=== PATIENT | female | born 1950 | race Caucasian/White ===

== ENCOUNTER 2020-05-22 08:41 | Day surgery (SDC) | payer MEDICARE, BC ==
[~2020-05-22] VITALS: Ht 152.4 cm; Wt 69.4 kg
[2020-05-22 09:17] VITALS: BP 162/73; PULSE 63; TEMP 98.4
[2020-05-22] MEDS ORDERED: MAXZIDE-25MG TA1 TAB PO (09:23)
[2020-05-22] MEDS ORDERED: ZOCOR 20MG20 MG PO (09:24)
[2020-05-22] MEDS ORDERED: LOPRESSOR 550 MG/TAB PO (09:24)
[2020-05-22] MEDS ORDERED: CALCIUM 600MG+D1 TAB PO (09:25)
[2020-05-22] MEDS ORDERED: ASPIRIN 81M81 MG/TA2 PO (09:26)
[2020-05-22] MEDS ORDERED: MULTIVITAMIN SEN PO (09:26)
[2020-05-22] MEDS ORDERED: PRILOTC PO (09:27)
[2020-05-22] MEDS ORDERED: VASOTEC20 MG PO (09:27)
[2020-05-22] MEDS ORDERED: ZYRTEC 10MG10 MG PO (09:28)
[2020-05-22] MEDS ORDERED: BENADRYL25 M2 PO (09:29)
[2020-05-22] MEDS ORDERED: ALEVE 220MG220 MG PO (09:29)
[2020-05-22 10:25] VITALS: BP 134/62; PULSE 69; TEMP 97.2
--- NOTE | 2020-05-22 10:25 | NUR ---
Pt to [facility] via cart from ENDO. Pt drowsy, but awakens easily. Pt ambulates to recliner with stand by assistance x2. Pt denies pain or nausea. Water given per pt request. Call light within reach. Will continue to monitor. Call light within reach.
[2020-05-22 10:40] VITALS: BP 119/60; PULSE 66
--- NOTE | 2020-05-22 10:40 | NUR ---
Pt continues to rest. Denies needs. Tolerating sips of water without difficulties. Call light within reach.
[2020-05-22 10:55] VITALS: BP 124/57; PULSE 59
--- NOTE | 2020-05-22 10:55 | NUR ---
Pudding given per pt request. into speak with pt. Call light within reach.
[2020-05-22 11:10] VITALS: BP 137/58; PULSE 56
--- NOTE | 2020-05-22 11:10 | NUR ---
Discharge instructions reviewed. Pt voices understanding. IV site discontinued with all parts intact. Pt up to dress. Call light within reach.
--- NOTE | 2020-05-22 11:34 | NUR ---
Pt escorted to private car via wheel chair. Pt accompanied home by her son.
== END 2020-05-22 11:35 | disposition home or self-care (01) ==
LOC: SDCO 08:41
DX: K21.9 Gastro-esophageal reflux disease without esophagitis (principal); D50.9 Iron deficiency anemia, unspecified; K92.1 Melena; E78.00 Pure hypercholesterolemia, unspecified; Z88.0 Allergy status to penicillin; Z79.82 Long term (current) use of aspirin; Z83.71 Family history of colonic polyps; Z87.891 Personal history of nicotine dependence; Z90.710 Acquired absence of both cervix and uterus
CPT/HCPCS: J2250; J3010; J7030